=== PATIENT | female | born 1990 | race Caucasian/White ===

== ENCOUNTER 2022-12-20 19:55 | Observation (INO) | payer MEDICAID, OTHER ==
[~2022-12-20] VITALS: Ht 160 cm; Wt 74.8 kg
[2022-12-20] MEDS ORDERED: PNV1TABL59 PO (20:24)
[2022-12-20 21:08] LABS: CLARITY URINE CLEAR (CLEAR); COLOR URINE YELLOW (YELLOW); KETONES URINE NEGATIVE (NEGATIVE); LEUKOCYTE ESTERASE URINE NEGATIVE (NEGATIVE); NITRITE URINE NEGATIVE (NEGATIVE); OCCULT BLOOD URINE NEGATIVE (NEGATIVE); PROTEIN URINE 1+ (NEGATIVE); SPECIFIC GRAVITY URINE 1.008 (1.005-1.030); UROBILINOGEN URINE 0.2 E.U./dL (0.2-1.0)
[2022-12-20 21:09] LABS: BASOPHILS % 0.4 % (0.0-2.0); EOSINOPHILS % 0.8 % (0.0-5.0); HEMATOCRIT. 35.1 % (36.0-48.0); HEMOGLOBIN. 11.6 g/dL (12.0-16.0); LYMPHOCYTES % 27.5 % (20.0-50.0); MEAN CORPUSCULAR HEMOGLOBIN 26.2 pg (28.0-32.0); MEAN CORPUSCULAR VOLUME 79.5 fL (81.0-99.0); MEAN PLATELET VOLUME 9.4 fl (7.4-10.4); MONOCYTES % 7.2 % (2.0-8.0); NEUTROPHILS % 64.1 % (40.0-76.0); PLATELET 277 x1000/uL (130-400); RED BLOOD CELL COUNT 4.42 mill/uL (4.2-5.4); RED CELL DISTRIBUTION WIDTH 15.1 % (11.6-14.6)
[2022-12-20 21:19] LABS: CHLORIDE 107 mEq/L (98-107)
[2022-12-20 21:22] LABS: D-DIMER 2.22 mg/L FEU (<0.50); INR 0.9; PROTHROMBIN TIME 9.8 sec (9.6-11.0)
[2022-12-21 03:10] LABS: BASOPHILS % 0.8 % (0.0-2.0); EOSINOPHILS % 1.6 % (0.0-5.0); HEMATOCRIT. 34.6 % (36.0-48.0); HEMOGLOBIN. 11.6 g/dL (12.0-16.0); LYMPHOCYTES % 29.1 % (20.0-50.0); MEAN CORPUSCULAR HEMOGLOBIN 26.9 pg (28.0-32.0); MEAN CORPUSCULAR VOLUME 80.3 fL (81.0-99.0); MEAN PLATELET VOLUME 9.4 fl (7.4-10.4); MONOCYTES % 8.8 % (2.0-8.0); NEUTROPHILS % 59.7 % (40.0-76.0); PLATELET 258 x1000/uL (130-400); RED BLOOD CELL COUNT 4.31 mill/uL (4.2-5.4); RED CELL DISTRIBUTION WIDTH 15.2 % (11.6-14.6)
[2022-12-21 03:32] LABS: CHLORIDE 108 mEq/L (98-107)
[2022-12-21 03:44] LABS: D-DIMER 2.36 mg/L FEU (<0.50); INR 0.9; PARTIAL THROMBOPLASTIN TIME 28.8 sec (23.4-31.0); PROTHROMBIN TIME 9.8 sec (9.6-11.0)
== END 2022-12-21 14:45 | disposition home or self-care (01) ==
LOC: 8 EST LDRP 19:55
PROVIDERS: ADMIT Obstetrics & Gynecology; ATTEND Obstetrics & Gynecology
DX: O99.340 Other mental disorders complicating pregnancy, unspecified trimester (principal); F81.9 Developmental disorder of scholastic skills, unspecified; Z3A.00 Weeks of gestation of pregnancy not specified; Z79.899 Other long term (current) drug therapy
CPT/HCPCS: 36415; 59025; 80053; 81003; 82575; 84156; 84550; 85025; 85379; 85384; 85610; 85730; G0378; 99281